=== PATIENT | female | born 1990 | race Caucasian/White ===

== ENCOUNTER 2021-04-11 11:14 | Emergency (ER) | payer OTHER ==
[2021-04-11] MEDS ORDERED: SILVADENE20 GM TP (12:05)
== END 2021-04-11 12:10 | disposition home or self-care (01) ==
LOC: ER1 11:14
DX: T23.222A Burn of second degree of single left finger (nail) except thumb, initial encounter (principal); X08.8XXA Exposure to other specified smoke, fire and flames, initial encounter
CPT/HCPCS: 90471; 90715; 99283; J2310